=== PATIENT | female | born 1990 | race Caucasian/White ===

== ENCOUNTER → 2020-01-07 11:00 | Outpatient (BNVA) | payer MEDICAID, SELFPAY | PROVIDERS: Family Provider Family Medicine; PCP Registered Nurse; Visit Provider Registered Nurse | DX: F32.9 Major depressive disorder, single episode, unspecified (principal) | CPT/HCPCS: 80053; 84443; 85025 ==

== ENCOUNTER → 2020-07-07 09:43 | Outpatient (BNVA) | payer BC, MEDICAID, SELFPAY | PROVIDERS: Family Provider Family Medicine; PCP Registered Nurse; Visit Provider Registered Nurse | DX: E66.01 Morbid (severe) obesity due to excess calories (principal); F32.9 Major depressive disorder, single episode, unspecified; F41.9 Anxiety disorder, unspecified; Z68.43 Body mass index [BMI] 50.0-59.9, adult | CPT/HCPCS: 84432; 84439; 84443; 84480; 86800 ==

== ENCOUNTER 2020-07-29 10:46 | Outpatient (CLI) | payer BC, MEDICAID, SELFPAY ==
[2020-07-30 15:32] LABS: Thyroglobulin AB <1 IU/mL (< or = 1); Thyroid Peroxidase Antobodies 1 IU/mL (<9)
[2020-08-04 16:11] LABS: TSH Receptor Binding Antibody <1.00 IU/L (< OR = 2.00)
== END 2020-07-29 10:47 | disposition home or self-care (01) ==
PROVIDERS: PCP Registered Nurse; Visit Provider Internal Medicine
DX: E07.9 Disorder of thyroid, unspecified (principal); R53.83 Other fatigue
CPT/HCPCS: 83516; 86376; 86800; 99204

== ENCOUNTER 2020-09-10 12:00 | Outpatient (CLI) | payer BC, MEDICAID, SELFPAY | END 2020-09-10 12:01 | disposition home or self-care (01) | LOC: SLEEP 09-11 11:03 | PROVIDERS: PCP Registered Nurse; Visit Provider Internal Medicine | DX: R53.83 Other fatigue (principal) | CPT/HCPCS: G0399 ==

== ENCOUNTER → 2021-01-04 14:40 | Outpatient (BNVA) | payer BC, MEDICAID, SELFPAY | PROVIDERS: PCP Registered Nurse; Visit Provider Registered Nurse | DX: N39.0 Urinary tract infection, site not specified (principal) | CPT/HCPCS: 81000 ==

== ENCOUNTER 2021-03-31 11:21 | Emergency (ER) | payer BC, MEDICAID, SELFPAY ==
[2021-03-31 11:28] VITALS: BP 131/85; PULSE 76; RESP 16; TEMP 36.1; O2SAT 94; BMI 44.4
--- NOTE | 2021-03-31 11:42 | ECG_ITS ---
[facility] Test Date: 2021-03-31 Pat Name: Megan Garcia Department: Room: Gender: Female Instrument Tech: : 1990 Requested By: Evens Shelley Order Number: [id number] Vinson MD: Quita Antonio M.D. Measurements Intervals [place] Rate: 67 P: 30 DE: 129 QRS: 31 QRSD: 98 T: 30 QT: 393 QTc: 416 Interpretive Statements SINUS RHYTHM INTERPRETATION BASED ON A DEFAULT AGE OF 40 YEARS No previous ECG available for comparison Electronically Signed On 04-01-2021 1:24:34 CDT by Quita Antonio M.D. [id number]
--- NOTE | 2021-03-31 11:43 | ED_ITS ---
Documented by User: ROSA Garcia 03/31/21 14:00 HPI - Abdominal Pain General: Chief Complaint: Abdominal Pain Stated Complaint: ABD PAIN/SWELLING Time Seen by Provider: 03/31/21 11:22 History of Present Illness: HPI narrative: Patient is a 31-year-old female comes to the ED with abdominal pain. Patient has a past medical history of pancreatitis and approximately 3 months ago had bariatric gastric bypass surgery. Gastric sleeve surgery went well and for the past month she has not had any complications with eating or any vomiting. Patient says symptoms started last night after she ate some pork. She developed an achy pain that she currently rates a 7 out of 10 in the epigastric region of her abdomen. The pain radiates to the middle of her back. Eating something makes the pain worse. She denies any emesis, fever, chest pain, shortness of breath, UTI symptoms or any acute change in bowel movements. Patient did say that she just recently stopped taking Protonix about a week ago per her bariatric surgeons instructions. Associated Symptoms: Reports nausea; Denies chills, constipation, diarrhea, dysuria, fever(s), hematochezia, hematuria and vomiting Review of Systems Const: Denies: fever(s), chills or fatigue Eyes: Denies: change in vision or eye discomfort ENMT: Denies: throat pain, odynophagia, nasal discharge or nasal congestion Card: Denies: chest pain, palpitations, edema, swelling of feet/ankles, dyspnea on exertion or orthopnea Resp: Denies: dyspnea, productive cough or non-productive cough GI: Reports: abdominal pain and nausea; Denies: vomiting, diarrhea, constipation or hematochezia : Denies: flank pain, dysuria or hematuria Musc: Denies: neck pain, back pain or extremity swelling Skin/Breast: Denies: rash or new lesions Neuro: Denies: headache(s), numbness in extremities or weakness in extremities PFSH ED PFSH: Medical History Anxiety Chronic lumbosacral pain Depression RLS (restless legs syndrome) Surgical History History of gastric bypass Hx of section Hx of cholecystectomy Hx of tubal ligation Family History Other Psychiatric illness Thyroid disease Social History Alcohol intake: never Adopted: No Caregiver/support person: No Lives independently: No Household members: children Marital status: SINGLE History of recent travel: No Sexually active: Yes Current gender identity: Female Physical Exam Const: COMMON NORMALS: no acute distress, patient oriented x3, healthy appearing and alert GENERAL APPEARANCE: cooperative and comfortable NUTRITIONAL APPEARANCE: obese HENMT: COMMON NORMALS: normocephalic HEAD & SCALP: normocephalic MOUTH: Normal oral and palatal mucosa present THROAT: posterior oropharynx normal and uvula midline Neck/C-Spine: COMMON NORMALS: supple GENERAL: Yes normal visual inspection Resp: COMMON NORMALS: normal respiratory effort, No retractions, No use of accessory muscles and clear to auscultation bilaterally AUSCULTATION: clear to auscultation bilaterally Cardio: COMMON NORMALS: regular rate, regular rhythm, S1 normal heart sound present, S2 normal heart sound present, No gallops present (Cardio), No clicks present (Cardio), No murmurs present (Cardio) and Peripheral pulses 2+ throughout RATE: regular rate RHYTHM: regular rhythm HEART SOUNDS: S1 normal heart sound present and S2 normal heart sound present PERIPHERAL PULSES: Peripheral pulses 2+ throughout GI: COMMON NORMALS: Normal to inspection, nondistended, normoactive bowel sounds present, Soft to palpation and no masses INSPECTION: Yes central obesity PALPATION: Yes Soft to palpation and Yes Tenderness to palpation present (GI) (epigastric region) Details: other : COMMON NORMALS: Yes no CVA tenderness BLADDER/KIDNEY EXAM: Yes no CVA tenderness Back/Pelvis: COMMON NORMALS: no CVA tenderness Extremity: COMMON NORMALS: normal to inspection Neuro: COMMON NORMALS: patient oriented x3 SENSORIUM/ORIENTATION: Yes alert GAIT: Yes Normal gait present Skin: GENERAL SKIN EXAM: dry skin Course Vital Signs: Vital signs: Vital Signs Temperature 98.6 F 03/31/21 12:11 Pulse Rate 72 03/31/21 12:11 Respiratory Rate 16 03/31/21 12:42 Blood Pressure 144/92 03/31/21 12:11 Pulse Oximetry 98 03/31/21 12:42 MDM - Abdominal Pain MDM Narrative: Medical decision making narrative: Patient is a 31-year-old female comes to the ED with epigastric pain. Pain started last night after she ate some pork. She has a past medical history of pancreatitis and had bariatric gastric bypass surgery 3 months ago. She recently was taken off her Protonix med about a month ago per her bariatric surgeon's instructions. Patient appears nontoxic and in no acute distress or pain. She has some mild epigastric tenderness to palpation. Vitals stable. Labs were all unremarkable. CT of abdomen pelvis showed no acute findings. EKG showed normal sinus rhythm with no ST segment elevation or depression seen. Patient symptoms likely due to the recent removal of Protonix. Patient was told to contact her bariatric surgeon to discuss getting back on Protonix med. Patient's symptoms were controlled here in the ED with IV fluids, Zofran and morphine. Patient diagnosed with epigastric abdominal pain and discharged home with prescription for Zofran. Return to ED precautions given. Patient says she will contact her bariatric surgeon to discuss getting put back on acid reflux med. Patient understood and agreed with plan. Lab Data: Labs: Lab Results 03/31/21 03/31/21 03/31/21 11:50 11:50 11:50 WBC 7.6 10^3/uL 10^3/ uL (4.0-10.0) RBC 4.42 10^6/uL 10^6 /uL (4.1-5.3) Hgb 12.9 g/dL g/dL (11.5-15.3) Hct 39.9 % % (37.0-47.0) MCV 90.3 fl fl (81-99) MCH 29.2 pg pg (28.0-34.0) MCHC 32.3 g/dL g/dL (30.0-36.0) RDW 13.7 % % (12.1-15.1) Plt Count 235 10^3/cmm 10^3 /cmm (130-400) MPV 11.1 fL H fL (7.4-10.4) Neut % (Auto) 59.1 % % Lymph % (Auto) 31.5 % % [place] % (Auto) 7.1 % % Eos % (Auto) 1.5 % % Baso % (Auto) 0.5 % % Neut # (Auto) 4.47 10^3/uL 10^3 /uL (1.8-7.7) Lymph # (Auto) 2.4 10^3/uL 10^3/ uL (0.8-4.8) [place] # (Auto) 0.5 10^3/uL 10^3/ uL (0.2-0.9) Eos # (Auto) 0.1 10^3/uL 10^3/ uL (0.0-0.8) Baso # (Auto) 0.0 10^3/uL 10^3/ uL (0.0-0.1) Nucleated RBC % (a uto) 0 % % Nucleated RBCs # 0.0 /100WBC /100W BC Sodium 136 mmol/L mmol/L (136-145) Potassium 4.0 mmol/L mmol/L (3.5-5.1) Chloride 101 mmol/L mmol/L (98-107) Carbon Dioxide 27 mmol/L mmol/L (22-29) Anion Gap 12.0 (5-19) BUN 7 mg/dL mg/dL (6-20) Creatinine 0.6 mg/dL mg/dL (0.5-0.9) GFR Calculation 115.1 mL/min mL/m in (90-130) Glucose 85 mg/dL mg/dL (65-115) Calculated Osmolal ity 279 mOsm/kg L mOs m/kg (285-295) Calcium 9.3 mg/dL mg/dL (8.5-10.5) Total Bilirubin 0.2 mg/dL mg/dL (0.15-1.2) AST 27 U/L U/L (0-32) ALT 31 U/L U/L (0-33) Alkaline Phosphata se 110 IU/L H IU/L (35-105) Total Protein 7.0 g/dL g/dL (6.6-8.7) Albumin 4.1 g/dL g/dL (3.5-5.2) Globulin 2.9 g/dL g/dL (1.3-4.6) Lipase 19 U/L U/L (13-60) HCG, Qual Negative (Negative) Urine Color Urine Appearance Urine pH Ur Specific Gravit y Urine Protein Urine Glucose (UA) Urine Ketones Urine Blood Urine Nitrate Urine Bilirubin Urine Urobilinogen Ur Leukocyte Indu ase Urine RBC Urine WBC Ur Squamous Epith Cells Amorphous Sediment Urine Bacteria Urine Mucus 10/27/21 12:15 WBC RBC Hgb Hct MCV MCH MCHC RDW Plt Count MPV Neut % (Auto) Lymph % (Auto) [place] % (Auto) Eos % (Auto) Baso % (Auto) Neut # (Auto) Lymph # (Auto) [place] # (Auto) Eos # (Auto) Baso # (Auto) Nucleated RBC % (a uto) Nucleated RBCs # Sodium Potassium Chloride Carbon Dioxide Anion Gap BUN Creatinine GFR Calculation Glucose Calculated Osmolal ity Calcium Total Bilirubin AST ALT Alkaline Phosphata se Total Protein Albumin Globulin Lipase HCG, Qual Urine Color Yellow (Yellow) Urine Appearance Hazy A (CLEAR) Urine pH 5 (5-7) Ur Specific Gravit y 1.015 (1.005-1.030) Urine Protein Neg (Negative) Urine Glucose (UA) Norm (Normal) Urine Ketones 1+ H (Negative) Urine Blood Neg (Negative) Urine Nitrate Negative (Negative) Urine Bilirubin 1+ H (Negative) Urine Urobilinogen 1 mg/dL H mg/dL (Negative) Ur Leukocyte Indu ase 1+ H (Negative) Urine RBC Not Reportable Urine WBC 10-15 /hpf H /hpf (0-5) Ur Squamous Epith Cells 15-25 /hpf H /hpf (0-5) Amorphous Sediment Not Reportable Urine Bacteria 1+ /hpf H /hpf (NONE) Urine Mucus 3+ /hpf /hpf Imaging Data ^: CT Abd/Pel: Attestation: I personally reviewed and interpreted this imaging study as follows: Radiologist's impression: [address] [address] [address] Scan Report Signed Patient: Megan Garcia Unit #: [id number] : 1990 Age/Sex: 31 / F ADM Date: 03/31/21 Loc: ER Room/Bed: Attending Dr: Ordering Provider/Ordering MD: Evens Shelley Date of Service: 03/31/21 Procedure(s): CT abdomen pelvis w con* [id number] Accession Number(s): [id number] Report Number: [id number] WS: [id number] CT ABDOMEN AND PELVIS WITH CONTRAST HISTORY: epigastric pain, nausea TECHNIQUE: Imaging performed of the abdomen and pelvis with IV contrast. Single phase imaging of the abdomen. Coronal and sagittal reformats are submitted. All CT scans at [facility] use at least one of these dose optimization techniques: automated exposure control; mA and/or kV adjustment per patient size (includes targeted exams where dose is matched to clinical indication); or iterative reconstruction. IV CONTRAST: Omnipaque 300; 95 mL IV. Oral contrast: No DLP: 1822.12 mGy.cm COMPARISON: None available. Lower thorax: Lung bases are clear. Heart is normal size. No hiatal hernia. Liver/biliary system: Hepatic steatosis along the falciform ligament. No bile duct dilatation or mass. Gallbladder: Status post cholecystectomy. Pancreas: Normal size pancreas and pancreatic duct. No adjacent inflammation. Spleen: Normal size spleen. No mass or infarct. Adrenal glands: Normal. Right kidney: Normal. Left kidney: Normal. Aorta: Normal. Lymphadenopathy: None. Free fluid: Tiny amount of free fluid in the RIGHT pelvis. GI tract: The appendix is normal. No GI tract obstruction. Prior gastric bypass surgery. Abdominal wall: Fat-containing umbilical hernia. Pelvis: Slightly retroflexed uterus. Small amount of free fluid in the RIGHT adnexa. Small follicles within the RIGHT ovary. Bones: Unremarkable. CT/CT abdomen pelvis w con* [id number] IMPRESSION: 1. No acute abdominal or pelvic abnormalities are identified. 2. Normal appendix. 3. No renal obstruction or calcifications. 4. Very small amount of free fluid in the RIGHT pelvis is physiologic. May be from a recently ruptured ovarian cyst. 5. Prior cholecystectomy and gastric bypass. Dictated By: Sonam Black DO Signed By: Sonam Black DO Signed Date/Time: 03/31/21 1323 DD/ 1319 EKG Data ^: EKG 1: Attestation: I personally reviewed and interpreted this EKG as follows: EKG interpretation date: 03/31/21 Interpretation: Normal sinus rhythm. 67 bpm, no ST segment elevation or depression seen. Discharge Plan Discharge Patient Disposition: Home Clinical Impression: Epigastric abdominal pain Condition: Stable Prescriptions: New ondansetron 4 mg tablet,disintegrating 4 mg PO Q8H PRN (Reason: nausea and vomiting) Qty: 20 RF: 0 No Action (DME) CPAP See Rx Instructions .Route .MEDSUPPLY Qty: 1 RF: 0 amoxicillin 500 mg tablet 500 mg PO BID 10 Days Qty: 20 RF: 0 multivitamin Tablet 1 tab PO DAILY RF: 0 Tylenol Ex Str Rapid Release 500 mg Tablet 1,000 mg PO Q4H PRN (Reason: Pain) RF: 0 Calcium Chew 500-100-40 mg-unit-mcg Tablet,Chewable 1 tab PO BID RF: 0 buspirone 10 mg tablet 5 mg PO BID RF: 0 spironolactone 50 mg tablet 50 mg PO QAM RF: 0 escitalopram oxalate 20 mg tablet 20 mg PO BEDTIME RF: 0 Discharge Orders: Discharge ED (Routine); Ordered 03/31/21 Ordered By: Evens Shelley Referrals: Deepak Aguirre FNP [Primary Care Provider] - Discharge Diet: Advance as tolerated Discharge Activity: Resume usual activity Patient Instructions: Abdominal Pain (ED), Epigastric Pain (ED) Activity Restrictions/Additional Instructions: Follow-up with medical provider as directed. Contact your gastric bypass surgeon to discuss getting back on your acid reflux medication Protonix. Continue taking all home medications as previously prescribed. Return to the ER or your medical provider if condition worsens. Please read and understand discharge instructions. Thank you for choosing [facility] for your healthcare needs today. Please realize this is an emergency room and that we are providing you with a medical screening exam and this may not be complete and all inclusive of all the testing and or work up that you may need to determine your ailment or severity of your illness. It is very important that you follow up as instructed or that you return to the Emergency Department should you have concerns or if your condition changes or worsens in any way. Coding Level of Care Code ED Pack Train Driver for Chg Fwd Exam Comprehensive Documented by User: Jennifer Castillo MD 04/01/21 23:00 HPI - Abdominal Pain General: Chief Complaint: Abdominal Pain Stated Complaint: ABD PAIN/SWELLING Time Seen by Provider: 03/31/21 11:22 [facility] ED PFSH: Medical History Anxiety Chronic lumbosacral pain Depression RLS (restless legs syndrome) Surgical History History of gastric bypass Hx of section Hx of cholecystectomy Hx of tubal ligation Family History Other Psychiatric illness Thyroid disease Social History Alcohol intake: never Adopted: No Caregiver/support person: No Lives independently: No Household members: children Marital status: SINGLE History of recent travel: No Sexually active: Yes Current gender identity: Female Course Vital Signs: Vital signs: Vital Signs Temperature 98.6 F 03/31/21 12:11 Pulse Rate 72 03/31/21 12:11 Respiratory Rate 16 03/31/21 12:42 Blood Pressure 144/92 03/31/21 12:11 Pulse Oximetry 98 03/31/21 12:42 MDM - Abdominal Pain Lab Data: Labs: Lab Results 03/31/21 03/31/21 03/31/21 11:50 11:50 11:50 WBC 7.6 10^3/uL 10^3/ uL (4.0-10.0) RBC 4.42 10^6/uL 10^6 /uL (4.1-5.3) Hgb 12.9 g/dL g/dL (11.5-15.3) Hct 39.9 % % (37.0-47.0) MCV 90.3 fl fl (81-99) MCH 29.2 pg pg (28.0-34.0) MCHC 32.3 g/dL g/dL (30.0-36.0) RDW 13.7 % % (12.1-15.1) Plt Count 235 10^3/cmm 10^3 /cmm (130-400) MPV 11.1 fL H fL (7.4-10.4) Neut % (Auto) 59.1 % % Lymph % (Auto) 31.5 % % [place] % (Auto) 7.1 % % Eos % (Auto) 1.5 % % Baso % (Auto) 0.5 % % Neut # (Auto) 4.47 10^3/uL 10^3 /uL (1.8-7.7) Lymph # (Auto) 2.4 10^3/uL 10^3/ uL (0.8-4.8) [place] # (Auto) 0.5 10^3/uL 10^3/ uL (0.2-0.9) Eos # (Auto) 0.1 10^3/uL 10^3/ uL (0.0-0.8) Baso # (Auto) 0.0 10^3/uL 10^3/ uL (0.0-0.1) Nucleated RBC % (a uto) 0 % % Nucleated RBCs # 0.0 /100WBC /100W BC Sodium 136 mmol/L mmol/L (136-145) Potassium 4.0 mmol/L mmol/L (3.5-5.1) Chloride 101 mmol/L mmol/L (98-107) Carbon Dioxide 27 mmol/L mmol/L (22-29) Anion Gap 12.0 (5-19) BUN 7 mg/dL mg/dL (6-20) Creatinine 0.6 mg/dL mg/dL (0.5-0.9) GFR Calculation 115.1 mL/min mL/m in (90-130) Glucose 85 mg/dL mg/dL (65-115) Calculated Osmolal ity 279 mOsm/kg L mOs m/kg (285-295) Calcium 9.3 mg/dL mg/dL (8.5-10.5) Total Bilirubin 0.2 mg/dL mg/dL (0.15-1.2) AST 27 U/L U/L (0-32) ALT 31 U/L U/L (0-33) Alkaline Phosphata se 110 IU/L H IU/L (35-105) Total Protein 7.0 g/dL g/dL (6.6-8.7) Albumin 4.1 g/dL g/dL (3.5-5.2) Globulin 2.9 g/dL g/dL (1.3-4.6) Lipase 19 U/L U/L (13-60) HCG, Qual Negative (Negative) Urine Color Urine Appearance Urine pH Ur Specific Gravit y Urine Protein Urine Glucose (UA) Urine Ketones Urine Blood Urine Nitrate Urine Bilirubin Urine Urobilinogen Ur Leukocyte Indu ase Urine RBC Urine WBC Ur Squamous Epith Cells Amorphous Sediment Urine Bacteria Urine Mucus 03/31/21 12:15 WBC RBC Hgb Hct MCV MCH MCHC RDW Plt Count MPV Neut % (Auto) Lymph % (Auto) [place] % (Auto) Eos % (Auto) Baso % (Auto) Neut # (Auto) Lymph # (Auto) [place] # (Auto) Eos # (Auto) Baso # (Auto) Nucleated RBC % (a uto) Nucleated RBCs # Sodium Potassium Chloride Carbon Dioxide Anion Gap BUN Creatinine GFR Calculation Glucose Calculated Osmolal ity Calcium Total Bilirubin AST ALT Alkaline Phosphata se Total Protein Albumin Globulin Lipase HCG, Qual Urine Color Yellow (Yellow) Urine Appearance Hazy A (CLEAR) Urine pH 5 (5-7) Ur Specific Gravit y 1.015 (1.005-1.030) Urine Protein Neg (Negative) Urine Glucose (UA) Norm (Normal) Urine Ketones 1+ H (Negative) Urine Blood Neg (Negative) Urine Nitrate Negative (Negative) Urine Bilirubin 1+ H (Negative) Urine Urobilinogen 1 mg/dL H mg/dL (Negative) Ur Leukocyte Indu ase 1+ H (Negative) Urine RBC Not Reportable Urine WBC 10-15 /hpf H /hpf (0-5) Ur Squamous Epith Cells 15-25 /hpf H /hpf (0-5) Amorphous Sediment Not Reportable Urine Bacteria 1+ /hpf H /hpf (NONE) Urine Mucus 3+ /hpf /hpf Discharge Plan Discharge Patient Disposition: Home Clinical Impression: Epigastric abdominal pain Condition: Stable Prescriptions: New ondansetron 4 mg tablet,disintegrating 4 mg PO Q8H PRN (Reason: nausea and vomiting) Qty: 20 RF: 0 No Action (DME) CPAP See Rx Instructions .Route .MEDSUPPLY Qty: 1 RF: 0 amoxicillin 500 mg tablet 500 mg PO BID 10 Days Qty: 20 RF: 0 multivitamin Tablet 1 tab PO DAILY RF: 0 Tylenol Ex Str Rapid Release 500 mg Tablet 1,000 mg PO Q4H PRN (Reason: Pain) RF: 0 Calcium Chew 500-100-40 mg-unit-mcg Tablet,Chewable 1 tab PO BID RF: 0 buspirone 10 mg tablet 5 mg PO BID RF: 0 spironolactone 50 mg tablet 50 mg PO QAM RF: 0 escitalopram oxalate 20 mg tablet 20 mg PO BEDTIME RF: 0 Discharge Orders: Discharge ED (Routine); Ordered 03/31/21 Ordered By: Evens Shelley Referrals: Deepak Aguirre, PRINCIPAL ARCHAEOLOGIST [Primary Care Provider] - Discharge Diet: Advance as tolerated Discharge Activity: Resume usual activity Patient Instructions: Abdominal Pain (ED), Epigastric Pain (ED) Activity Restrictions/Additional Instructions: Follow-up with medical provider as directed. Contact your gastric bypass surgeon to discuss getting back on your acid reflux medication Protonix. Continue taking all home medications as previously prescribed. Return to the ER or your medical provider if condition worsens. Please read and understand discharge instructions. Thank you for choosing [facility] for your healthcare needs today. Please realize this is an emergency room and that we are providing you with a medical screening exam and this may not be complete and all inclusive of all the testing and or work up that you may need to determine your ailment or severity of your illness. It is very important that you follow up as instructed or that you return to the Emergency Department should you have concerns or if your condition changes or worsens in any way. Coding Level of Care Code ED Pack Train Driver for Chg Fwd Exam Comprehensive
[2021-03-31 12:07] LABS: Basophils % 0.5 %; Eosinophils # 0.1 10^3/uL (0.0-0.8); Eosinophils % 1.5 %; Hematocrit 39.9 % (37.0-47.0); Hemoglobin 12.9 g/dL (11.5-15.3); Lymphocytes # 2.4 10^3/uL (0.8-4.8); Lymphocytes % 31.5 %; Mean Corpuscular HGB Conc 32.3 g/dL (30.0-36.0); Mean Corpuscular Hemoglobin 29.2 pg (28.0-34.0); Mean Corpuscular Volume 90.3 fl (81-99); Mean Platelet Volume 11.1 fL (7.4-10.4); Monocytes # 0.5 10^3/uL (0.2-0.9); Monocytes % 7.1 %; Neutrophils # 4.47 10^3/uL (1.8-7.7); Neutrophils % 59.1 %; Nucleated Red Blood Cells % 0 %; Platelet Count 235 10^3/cmm (130-400); Red Blood Count 4.42 10^6/uL (4.1-5.3); Red Cell Distribution Width 13.7 % (12.1-15.1); White Blood Count 7.6 10^3/uL (4.0-10.0)
[2021-03-31 12:11] VITALS: BP 144/92; PULSE 72; RESP 16; TEMP 37; O2SAT 96
--- NOTE | 2021-03-31 12:22 | CT_ITS ---
WS: [id number] CT ABDOMEN AND PELVIS WITH CONTRAST HISTORY: epigastric pain, nausea TECHNIQUE: Imaging performed of the abdomen and pelvis with IV contrast. Single phase imaging of the abdomen. Coronal and sagittal reformats are submitted. All CT scans at [facility] use at [address] one of these dose optimization techniques: automated exposure control; mA and/or kV adjustment per patient size (includes targeted exams where dose is matched to clinical indication); or iterative re construction. IV CONTRAST: Omnipaque 300; 95 mL IV. Oral contrast: No DLP: 1822.12 mGy.cm COMPARISON: None available. Lower thorax: Lung bases are clear. Heart is normal size. No hiatal hernia. Liver/biliary system: Hepatic steatosis along the falciform ligament. No bile duct dilatation or mass . Gallbladder: Status post cholecystectomy. Pancreas: Normal size pancreas and pancreatic duct. No adjacent inflammation. Spleen: Normal size spleen. No mass or infarct. Adrenal glands: Normal. Right kidney: Normal. Left kidney: Normal. Aorta: Normal. Lymphadenopathy: None. Free fluid: Tiny amount of free fluid in the RIGHT pelvis. GI tract: The appendix is normal. No GI tract obstruction. Prior gastric bypass surgery. Abdominal wall: Fat-containing umbilical hernia. Pelvis: Slightly retroflexed uterus. Small amount of free fluid in the RIGHT adnexa. Small follicles within the RIGHT ovary. Bones: Unremarkable. CT/CT abdomen pelvis w con* [id number] IMPRESSION: 1. No acute abdominal or pelvic abnormalities are identified. 2. Normal appendix. 3. No renal obstruction or calcifications. 4. Very small amount of free fluid in the RIGHT pelvis is physiologic. May be from a recently ruptured ovarian cyst. 5. Prior cholecystectomy and gastric bypass.
[2021-03-31 12:29] LABS: Alanine Aminotransferase 31 U/L (0-33); Albumin Level 4.1 g/dL (3.5-5.2); Alkaline Phosphatase 110 IU/L (35-105); Aspartate Amino Transferase 27 U/L (0-32); Blood Urea Nitrogen 7 mg/dL (6-20); Calcium 9.3 mg/dL (8.5-10.5); Carbon Dioxide 27 mmol/L (22-29); Chloride 101 mmol/L (98-107); Globulin 2.9 g/dL (1.3-4.6); Glomerular Filtration Rate 115.1 mL/min (90-130); Glucose 85 mg/dL (65-115); Lipase 19 U/L (13-60); Osmolality Calculated 279 mOsm/kg (285-295); Sodium 136 mmol/L (136-145); Total Bilirubin 0.2 mg/dL (0.15-1.2)
[2021-03-31 12:31] LABS: Charge for UA Resulting for Rev
[2021-03-31 12:42] VITALS: RESP 16; O2SAT 98
[2021-03-31] MEDS: ondansetron 2 mg/ML SDV 2 mL 4 MG IVP (12:42)
[2021-03-31] MEDS: morphine 4 mg/mL SDV 1 mL IVP (12:42)
[2021-03-31] MEDS: sodium chloride 0.9% 500 ML 999 ML IV (12:44)
[2021-03-31 12:53] LABS: HCG, Serum Qual Negative (Negative)
[2021-03-31 12:59] LABS: Add Urine Microscopic? YES; Bilirubin Urine 1+ (Negative); Blood Urine Neg (Negative); Glucose Urine UA Norm (Normal); Ketones Urine 1+ (Negative); Leukocyte Esterase Urine 1+ (Negative); Nitrate Urine Negative (Negative); Protein Urine Neg (Negative); Specific Gravity, Urine 1.015 (1.005-1.030); Urine Appearance Hazy (CLEAR); Urine Color Yellow (Yellow); Urobilinogen Urine 1 mg/dL (Negative); pH Urine 5 (5-7)
[2021-03-31 13:00] LABS: Bacteria Urine 1+ /hpf; Mucus Urine 3+ /hpf; Squamous Epithelial Cell Urine 15-25 /hpf (0-5)
[2021-03-31 13:01] LABS: Add Urine Culture? No
[2021-03-31] MEDS: iohexol 300 mg/mL 100 mL Btl IV (13:03)
== END 2021-03-31 14:56 | disposition home or self-care (01) ==
PROVIDERS: Emergency Provider Physician Assistant; PCP Registered Nurse
DX: R10.13 Epigastric pain (principal)
CPT/HCPCS: 74177; 80053; 81001; 81003; 83690; 84703; 85025; 93005; 96374; 96375; 99283; 99291; J2270; J2405; J7040; Q9967

== ENCOUNTER 2021-08-15 09:23 | Emergency (ER) | payer BC, MEDICAID, SELFPAY ==
[2021-08-15 09:33] VITALS: BP 97/66; PULSE 121; RESP 20; TEMP 39; O2SAT 96; BMI 38.7
--- NOTE | 2021-08-15 09:41 | XRR_ITS ---
PROCEDURE INFORMATION: Exam: XR Chest Exam date and time: 08/15/2021 9:41 AM Age: 31 years old Clinical indication: Fever TECHNIQUE: Imaging protocol: XR of the chest. Views: 1 view. COMPARISON: CT abdomen pelvis w con* [id number] 03/31/2021 1:01 PM FINDINGS: Lungs: Unremarkable. No consolidation. Pleural spaces: Unremarkable. No pleural effusion. No pneumothorax. Heart/Mediastinum: Unremarkable. No cardiomegaly. Bones/joints: Unremarkable. XR/XR chest 1V portable [id number] IMPRESSION: Negative chest examination
--- NOTE | 2021-08-15 09:49 | W.ED.FEVER ---
HPI - Fever General: Chief Complaint: Fever Stated Complaint: chest/throat burn; cough; fever Time Seen by Provider: 08/15/21 09:33 Source: patient Mode of arrival: ambulatory Limitations: no limitations History of Present Illness: 31-year-old female states that over the last day she has been having fever body aches chills and a burning cough. States that she took a Tylenol day and she is continue to have a fever. She denies any worsening improving factors states she also has felt dehydrated she has had little decreased appetite. 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 Associated symptoms: Reports chills; Deny abdominal pain, chest pain, diarrhea, dysuria, headache(s), nausea or vomiting Review of Systems Const: Reports: fever(s), chills and body aches; Denies: change in appetite Eyes: Denies: blurry vision or eye discomfort ENMT: Denies: throat pain or dental pain Card: Denies: chest pain Resp: Reports: non-productive cough; Denies: dyspnea GI: Denies: abdominal pain, nausea, vomiting or diarrhea : Denies: dysuria Musc: Denies: neck pain or back pain Skin/Breast: Denies: rash Neuro: Denies: headache(s) Psych: Denies: depression Spencer/Lymph: Denies: easy bruising All/Imm: Denies: urticaria PFSH ED PFSH: Medical History Anxiety Chronic lumbosacral pain Depression RLS (restless legs syndrome) Surgical History History of gastric bypass Hx of section Hx of cholecystectomy Hx of tubal ligation Family History Other Psychiatric illness Thyroid disease Social History Alcohol intake: never Adopted: No Caregiver/support person: No Lives independently: No Household members: children Marital status: SINGLE History of recent travel: No Sexually active: Yes Current gender identity: Female Physical Exam Const: COMMON NORMALS: no acute distress, patient oriented x3 and healthy appearing HENMT: COMMON NORMALS: normocephalic and atraumatic HEAD & SCALP: normocephalic and atraumatic Eye: COMMON NORMALS: Equal, round and reactive pupils present and EOMs intact bilaterally PUPIL: Yes Equal, round and reactive pupils present Neck/C-Spine: COMMON NORMALS: full ROM and supple Chest: COMMONS NORMALS: normal inspection of the chest and normal palpation of entire chest wall Resp: COMMON NORMALS: normal respiratory effort, No retractions, No use of accessory muscles and clear to auscultation bilaterally AUSCULTATION: clear to auscultation bilaterally Cardio: COMMON NORMALS: regular rhythm and No murmurs present (Cardio) RATE: tachycardic RHYTHM: regular rhythm GI: COMMON NORMALS: Normal to inspection, nondistended, normoactive bowel sounds present, Soft to palpation, non-tender and no masses PALPATION: Yes Soft to palpation Extremity: COMMON NORMALS: normal to inspection and full ROM Neuro: COMMON NORMALS: patient oriented x3, moves all extremities and no focal motor deficits Psych: COMMON NORMALS: mental status grossly normal, Normal thought process present and cooperative THOUGHT PROCESS: Normal thought process present Skin: COMMON NORMALS: no rashes or lesions noted and no wounds GENERAL SKIN EXAM: no rashes or lesions noted Course Vital Signs: Vital signs: Vital Signs Temperature 101.0 F H 08/15/21 10:20 Pulse Rate 115 H 08/15/21 10:20 Respiratory Rate 20 H 08/15/21 09:33 Blood Pressure 116/66 08/15/21 10:20 Pulse Oximetry 95 08/15/21 10:20 MDM - Fever Medical Decision Making Patient presents here with fever body aches is positive for influenza A she is well-appearing here temperature is improved she feels improved after IV fluids she is stable for discharge is to follow-up PCP and return if worsening she understands agrees to plan. Lab Data : 08/15/21 09:56 08/15/21 09:56 Laboratory Results WBC 3.6 10^3/uL (4.0-10.0) L 08/15/21 09:56 RBC 4.80 10^6/uL (4.1-5.3) 08/15/21 09:56 Hgb 14.3 g/dL (11.5-15.3) 08/15/21 09:56 Hct 42.7 % (37.0-47.0) 08/15/21 09:56 MCV 89.0 fl (81-99) 08/15/21 09:56 MCH 29.8 pg (28.0-34.0) 08/15/21 09:56 MCHC 33.5 g/dL (30.0-36.0) 08/15/21 09:56 RDW 12.9 % (12.1-15.1) 08/15/21 09:56 Plt Count 179 10^3/cmm (130-400) 08/15/21 09:56 MPV 11.3 fL (7.4-10.4) H 08/15/21 09:56 Neut % (Auto) 71.5 % 08/15/21 09:56 Lymph % (Auto) 12.4 % 08/15/21 09:56 [place] % (Auto) 14.9 % 08/15/21 09:56 Eos % (Auto) 0.3 % 08/15/21 09:56 Baso % (Auto) 0.6 % 08/15/21 09:56 Neut # (Auto) 2.59 10^3/uL (1.8-7.7) 08/15/21 09:56 Lymph # (Auto) 0.5 10^3/uL (0.8-4.8) L 08/15/21 09:56 [place] # (Auto) 0.5 10^3/uL (0.2-0.9) 08/15/21 09:56 Eos # (Auto) 0.0 10^3/uL (0.0-0.8) 08/15/21 09:56 Baso # (Auto) 0.0 10^3/uL (0.0-0.1) 08/15/21 09:56 Nucleated RBC % (auto) 0 % 08/15/21 09:56 Nucleated RBCs # 0.0 /100WBC 08/15/21 09:56 Sodium 134 mmol/L (136-145) L 08/15/21 09:56 Potassium 3.7 mmol/L (3.5-5.1) 08/15/21 09:56 Chloride 100 mmol/L (98-107) 08/15/21 09:56 Carbon Dioxide 23 mmol/L (22-29) 08/15/21 09:56 Anion Gap 14.7 (5-19) 08/15/21 09:56 BUN 5 mg/dL (6-20) L 08/15/21 09:56 Creatinine 0.9 mg/dL (0.5-0.9) 08/15/21 09:56 GFR Calculation 72.1 mL/min (90-130) L 08/15/21 09:56 Glucose 94 mg/dL (65-115) 08/15/21 09:56 Calculated Osmolality 275 mOsm/kg (285-295) L 08/15/21 09:56 Lactate 0.9 mmol/L (0.5-2.2) 08/15/21 09:56 Calcium 8.5 mg/dL (8.5-10.5) 08/15/21 09:56 Total Bilirubin 0.2 mg/dL (0.15-1.2) 08/15/21 09:56 AST 43 U/L (0-32) H 08/15/21 09:56 ALT 49 U/L (0-33) H 08/15/21 09:56 Alkaline Phosphatase 132 IU/L (35-105) H 08/15/21 09:56 Total Protein 7.4 g/dL (6.6-8.7) 08/15/21 09:56 Albumin 4.4 g/dL (3.5-5.2) 08/15/21 09:56 Globulin 3.0 g/dL (1.3-4.6) 08/15/21 09:56 Influenza Type A Ag Positive (Negative) H 08/15/21 10:08 Influenza Type B Ag Negative (Negative) 08/15/21 10:08 Discharge Plan Discharge Patient Disposition: Home Clinical Impression: Influenza Condition: Stable Prescriptions: New Tamiflu 75 mg capsule 75 mg PO BID 5 Days Qty: 10 0RF No Action (DME) CPAP See Rx Instructions .Route .MEDSUPPLY Qty: 1 0RF Rx Instructions: Auto Titrate CPACP 6-16cm Sleep study done at [facility] escitalopram oxalate 20 mg tablet 20 mg PO BEDTIME 90 Days Qty: 90 3RF buspirone 10 mg tablet 5 mg PO BID Qty: 30 3RF multivitamin Tablet 1 tab PO DAILY 0RF Tylenol Ex Str Rapid Release 500 mg Tablet 1,000 mg PO Q4H PRN (Reason: Pain) 0RF Calcium Chew 500-100-40 mg-unit-mcg Tablet,Chewable 1 tab PO BID 0RF spironolactone 50 mg tablet 50 mg PO QAM 0RF ondansetron 4 mg tablet,disintegrating 4 mg PO Q8H PRN (Reason: nausea and vomiting) Qty: 20 0RF Discharge Orders: Discharge ED (Routine); Ordered 08/15/21 Ordered By: Fernando Yousif Referrals: Deepak Aguirre FNP [Primary Care Provider] - 1-3 days Discharge Diet: Advance as tolerated Discharge Activity: Resume usual activity Patient Instructions: Influenza (ED) Coding Level of Care Code ED Filler Shaker for Mariog Fwd Exam Comprehensive
[2021-08-15] MEDS: sodium chloride 0.9% 1,000 ML 999 ML IV (09:52)
[2021-08-15] MEDS: acetaminophen 325 mg Tablet 650 MG PO (09:53)
[2021-08-15 10:05] LABS: Basophils % 0.6 %; Eosinophils % 0.3 %; Hematocrit 42.7 % (37.0-47.0); Hemoglobin 14.3 g/dL (11.5-15.3); Lymphocytes # 0.5 10^3/uL (0.8-4.8); Lymphocytes % 12.4 %; Mean Corpuscular HGB Conc 33.5 g/dL (30.0-36.0); Mean Corpuscular Hemoglobin 29.8 pg (28.0-34.0); Mean Platelet Volume 11.3 fL (7.4-10.4); Monocytes # 0.5 10^3/uL (0.2-0.9); Monocytes % 14.9 %; Neutrophils # 2.59 10^3/uL (1.8-7.7); Neutrophils % 71.5 %; Nucleated Red Blood Cells % 0 %; Platelet Count 179 10^3/cmm (130-400); Red Cell Distribution Width 12.9 % (12.1-15.1); White Blood Count 3.6 10^3/uL (4.0-10.0)
[2021-08-15 10:20] VITALS: BP 116/66; PULSE 115; TEMP 38.3; O2SAT 95
[2021-08-15 10:22] LABS: Lactate (Lactic Acid level) 0.9 mmol/L (0.5-2.2)
[2021-08-15 10:23] LABS: Alanine Aminotransferase 49 U/L (0-33); Albumin Level 4.4 g/dL (3.5-5.2); Alkaline Phosphatase 132 IU/L (35-105); Anion Gap 14.7 (5-19); Aspartate Amino Transferase 43 U/L (0-32); Blood Urea Nitrogen 5 mg/dL (6-20); Calcium 8.5 mg/dL (8.5-10.5); Carbon Dioxide 23 mmol/L (22-29); Chloride 100 mmol/L (98-107); Glomerular Filtration Rate 72.1 mL/min (90-130); Glucose 94 mg/dL (65-115); Osmolality Calculated 275 mOsm/kg (285-295); Potassium 3.7 mmol/L (3.5-5.1); Sodium 134 mmol/L (136-145); Total Bilirubin 0.2 mg/dL (0.15-1.2); Total Protein 7.4 g/dL (6.6-8.7)
[2021-08-15 10:37] LABS: Influenza A by IFA Positive (Negative); Influenza B by IFA Negative (Negative)
[2021-08-15 10:43] VITALS: BP 113/64; PULSE 105; TEMP 37.8; O2SAT 97
[2021-08-15 11:58] LABS: Adenovirus Not Detected (NOT DETECT); Chlamydia Pneumoniae Not Detected (NOT DETECT); Coronavirus 229E,HKU1,NL63,OC4 Not Detected (NOT DETECT); Human Metapneumovirus Not Detected (NOT DETECT); Human Rhinovirus/Enterovirus Not Detected (NOT DETECT); Influenza A Detected (NOT DETECT); Influenza A H1 Not Detected (NOT DETECT); Influenza A H1-2009 Not Detected (NOT DETECT); Influenza A H3 Detected (NOT DETECT); Influenza B Not Detected (NOT DETECT); Mycoplasma Pneumoniae Not Detected (NOT DETECT); Parainfluenza Virus Type 1 Not Detected (NOT DETECT); Parainfluenza Virus Type 2 Not Detected (NOT DETECT); Parainfluenza Virus Type 3 Not Detected (NOT DETECT); Parainfluenza Virus Type 4 Not Detected (NOT DETECT); Respiratory Syncytial Virus A Not Detected (NOT DETECT); Respiratory Syncytial Virus B Not Detected (NOT DETECT); SARS-COV-2 Not Detected (NOT DETECT)
== END 2021-08-15 11:01 | disposition home or self-care (01) ==
PROVIDERS: Physician Assistant; Emergency Provider Emergency Medicine; PCP Registered Nurse
DX: J11.1 Influenza due to unidentified influenza virus with other respiratory manifestations (principal); Z20.822 Contact with and (suspected) exposure to COVID-19
CPT/HCPCS: 36415; 71045; 80053; 83605; 85025; 87040; 87635; 87804; 96360; 99283; J7030

== ENCOUNTER → 2022-10-11 10:18 | Outpatient (BNVA) | payer BC, MEDICAID, SELFPAY | PROVIDERS: PCP Registered Nurse; Visit Provider Registered Nurse | DX: E07.9 Disorder of thyroid, unspecified (principal); E66.01 Morbid (severe) obesity due to excess calories; R73.9 Hyperglycemia, unspecified; Z68.43 Body mass index [BMI] 50.0-59.9, adult | CPT/HCPCS: 80053; 80061; 82306; 82607; 83036; 84443; 85025 ==

== ENCOUNTER 2023-03-17 07:52 | Emergency (ER) | payer BC, MEDICAID, SELFPAY ==
[2023-03-17 08:03] VITALS: BP 107/72; PULSE 101; RESP 18; TEMP 36.8; O2SAT 95; BMI 37.0
[2023-03-17 08:07] VITALS: BP 106/78; PULSE 101; RESP 16; O2SAT 95
--- NOTE | 2023-03-17 08:18 | ED_ITS ---
HPI - Abdominal Pain General: Chief Complaint: Abdominal Pain Stated Complaint: lower abd pain Time Seen by Provider: 03/17/23 08:06 Source: patient Mode of arrival: ambulatory History of Present Illness: 33-year-old female presents to the emergency room with complaints of upper abdominal pain. This began yesterday afternoon. She had eaten some strawberries and blueberries nothing else that seem to trigger it. She has a history of pancreatitis, her pancreatitis in the past has not been related to alcohol her triglycerides. She has previously had bariatric surgery. She has been very nauseated she has not had any vomiting. No hematochezia melena hematemesis coffee-ground emesis no dysuria urgency or frequency or hematuria. Subjective fever overnight. MD elicited complaint: abdominal pain Pertinent past history: other (Pancreatitis) Onset (ago): hour(s) Pain Consistency: constant Location: Epigastric Severity: moderate Quality: sharp Radiation: back Exacerbating factors: eating Relieving factors: nothing Associated Symptoms: Reports anorexia, GI cramping, dyspepsia, nausea and poor appetite; Denies belching, bloating, change in bowel habits, change in stool character, chills, coffee ground emesis, constipation, diarrhea, dysuria, excessive flatus, fever(s), heartburn, hematochezia, hematuria, hematemesis, fecal incontinence, loose stools, melena, syncope, vomiting and other Review of Systems Const: Denies: fever(s) or chills Card: Denies: chest pain or syncope Resp: Denies: dyspnea GI: Reports: nausea and GI cramping; Denies: abdominal pain, vomiting, hematemesis, coffee ground emesis, heartburn, diarrhea, constipation, bloating, belching, excessive flatus, fecal incontinence, change in bowel habits, change in stool character, hematochezia, melena or other : Denies: dysuria, urinary frequency, urinary urgency or hematuria Musc: Denies: neck pain or back pain Skin/Breast: Denies: rash PFSH ED PFSH: Medical History Anxiety Chronic lumbosacral pain Depression RLS (restless legs syndrome) Surgical History History of gastric bypass Hx of section Hx of cholecystectomy Hx of tubal ligation Family History Other Psychiatric illness Thyroid disease Social History Smoking and tobacco/nicotine status: never used tobacco/nicotine Alcohol intake: never Substance/Drug Use: never Adopted: No Caregiver/support person: No Lives independently: No Household members: children Marital status: SINGLE Sexually active: Yes Do you think of yourself as: Straight/Heterosexual Current gender identity: Female Physical Exam Const: COMMON NORMALS: no acute distress GENERAL APPEARANCE: cooperative and comfortable ORIENTATION/CONSCIOUSNESS: Yes awake, Yes oriented to person, Yes oriented to place and Yes oriented to time HENMT: COMMON NORMALS: normocephalic, atraumatic and hearing grossly normal bilaterally HEAD & SCALP: normocephalic and atraumatic Resp: COMMON NORMALS: normal respiratory effort, No retractions, No use of accessory muscles and clear to auscultation bilaterally AUSCULTATION: clear to auscultation bilaterally Cardio: COMMON NORMALS: regular rate, regular rhythm and No murmurs present (Cardio) RATE: regular rate RHYTHM: regular rhythm GI: COMMON NORMALS: Soft to palpation and No hepatosplenomegaly present AUSCULTATION: Yes normoactive bowel sounds PALPATION: Yes Soft to palpation, No Tenderness to palpation present (GI), No Guarding due to palpation present (GI) and Yes No hepatosplenomegaly present Extremity: COMMON NORMALS: normal to inspection, capillary refill normal, no clubbing, cyanosis or edema, no calf tenderness and no pedal edema Neuro: SENSORIUM/ORIENTATION: Yes oriented to person, Yes oriented to place and Yes oriented to time Skin: COMMON NORMALS: no rashes or lesions noted GENERAL SKIN EXAM: no rashes or lesions noted Course Vital Signs: Vital signs: Vital Signs Temperature 98.2 F 03/17/23 08:03 Pulse Rate 92 03/17/23 10:50 Respiratory Rate 16 03/17/23 10:50 Blood Pressure 104/52 03/17/23 10:50 Pulse Oximetry 97 03/17/23 10:50 Oxygen Delivery Me thod Room Air 03/17/23 09:07 MDM - Abdominal Pain Medical Decision Making Labs and physical exam unremarkable. Patient is open improved discharge her home increase her pantoprazole to 40 mg twice daily add Carafate 1 g every 6 hours as needed discussed dietary adjustments recheck if not improving. Follow- up with primary care doctor in Differential Diagnosis Likely abdominal pain, acute appendicitis, calculus of kidney, pancreatitis and small bowel obstruction Medical Records I reviewed the patient's medical records. Lab Data I reviewed the patient's lab results. 03/17/23 08:17 03/17/23 08:17 Labs/Radiology: Laboratory Results WBC 5.43 10^3/uL (3.29-11.43) 03/17/23 08:17 RBC 4.69 10^6/uL (3.85-5.65) 03/17/23 08:17 Hgb 11.40 g/dL (11.27-16.99) 03/17/23 08:17 Hct 37.0 % (36-47) 03/17/23 08:17 MCV 78.9 fl (85-98) L 03/17/23 08:17 MCH 24.3 pg (27-33) L 03/17/23 08:17 MCHC 30.8 g/dL (30-55) 03/17/23 08:17 RDW 14.2 % (12.1-15.1) 03/17/23 08:17 Plt Count 265 10^3/cmm (157-399) 03/17/23 08:17 MPV 10.7 fL (7.4-10.4) H 03/17/23 08:17 Neut % (Auto) 72.9 % 03/17/23 08:17 Lymph % (Auto) 16.9 % 03/17/23 08:17 [place] % (Auto) 8.7 % 03/17/23 08:17 Eos % (Auto) 0.7 % 03/17/23 08:17 Baso % (Auto) 0.6 % 03/17/23 08:17 Neut # (Auto) 3.96 10^3/uL (1.8-7.7) 03/17/23 08:17 Lymph # (Auto) 0.9 10^3/uL (0.8-4.8) 03/17/23 08:17 [place] # (Auto) 0.5 10^3/uL (0.2-0.9) 03/17/23 08:17 Eos # (Auto) 0.0 10^3/uL (0.0-0.8) 03/17/23 08:17 Baso # (Auto) 0.0 10^3/uL (0.0-0.1) 03/17/23 08:17 Nucleated RBC % (auto) 0 % 03/17/23 08:17 Nucleated RBCs # 0.0 /100WBC 03/17/23 08:17 Sodium 137 mmol/L (136-145) 03/17/23 08:17 Potassium 4.1 mmol/L (3.5-5.1) 03/17/23 08:17 Chloride 103 mmol/L (98-107) 03/17/23 08:17 Carbon Dioxide 25 mmol/L (22-29) 03/17/23 08:17 Anion Gap 13.1 (5-19) 03/17/23 08:17 BUN 13 mg/dL (6-20) 03/17/23 08:17 Creatinine 0.7 mg/dL (0.5-0.9) 03/17/23 08:17 GFR Calculation 95.2 mL/min (90-130) 03/17/23 08:17 Glucose 102 mg/dL (65-115) 03/17/23 08:17 Calculated Osmolality 284 mOsm/kg (285-295) L 03/17/23 08:17 Calcium 8.8 mg/dL (8.5-10.5) 03/17/23 08:17 Total Bilirubin 0.5 mg/dL (0.15-1.2) 03/17/23 08:17 AST 31 U/L (0-32) 03/17/23 08:17 ALT 30 U/L (0-33) 03/17/23 08:17 Alkaline Phosphatase 110 U/L (35-105) H 03/17/23 08:17 Total Protein 7.0 g/dL (6.6-8.7) 03/17/23 08:17 Albumin 4.1 g/dL (3.5-5.2) 03/17/23 08:17 Globulin 2.9 g/dL (1.3-4.6) 03/17/23 08:17 Lipase 27 U/L (13-60) 03/17/23 08:17 Urine Color Yellow (Yellow) 03/17/23 09:10 Urine Appearance Hazy (CLEAR) A 03/17/23 09:10 Urine pH 5 (5-7) 03/17/23 09:10 Ur Specific [place] 1.020 (1.005-1.030) 03/17/23 09:10 Urine Protein Neg (Negative) 03/17/23 09:10 Urine Glucose (UA) Norm (Normal) 03/17/23 09:10 Urine Ketones Negative (Negative) 03/17/23 09:10 Urine Blood 3+ (Negative) H 03/17/23 09:10 Urine Nitrate Negative (Negative) 03/17/23 09:10 Urine Bilirubin 1+ (Negative) H 03/17/23 09:10 Urine Urobilinogen 1 mg/dL (Negative) H 03/17/23 09:10 Ur Leukocyte Esterase Negative (Negative) 03/17/23 09:10 Urine RBC 0-4 /hpf (0-2) H 03/17/23 09:10 Urine WBC 0-4 /hpf (0-5) H 03/17/23 09:10 Ur Squamous Epith Cells 15-25 /hpf (0-5) H 03/17/23 09:10 Amorphous Sediment Not Reportable 03/17/23 09:10 Urine Bacteria 2+ /hpf (NONE) H 03/17/23 09:10 No radiology studies performed this visit Discharge Plan Discharge Patient Disposition: Home Clinical Impression: GERD (gastroesophageal reflux disease) Condition: Stable Prescriptions: New pantoprazole 40 mg tablet,delayed release (DR/EC) 40 mg PO BID 14 Days Qty: 28 0RF Carafate 1 gram tablet 1 g PO Q6H PRN (Reason: Dyspepsia, stomach upset) 28 Days Qty: 112 0RF Rx Instructions: Do not take within 45 minutes to an hour of pantoprazole Discontinued pantoprazole 20 mg tablet,delayed release (DR/EC) 20 mg PO QAM No Action (DME) CPAP See Rx Instructions .Route .MEDSUPPLY Qty: 1 0RF Rx Instructions: Auto Titrate CPACP 6-16cm Sleep study done at [facility] buspirone 10 mg tablet 20 mg PO BID 90 Days Qty: 360 0RF acetaminophen [Tylenol Ex Str Rapid Release] 500 mg Tablet 1,000 mg PO Q4H PRN (Reason: Pain) venlafaxine 37.5 mg capsule,extended release 24hr 37.5 mg PO QAM Discharge Orders: Discharge ED (Routine); Ordered 03/17/23 Ordered By: Lon Moy Referrals: Deepak Aguirre FNP [Primary Care Provider] - Discharge Diet: As Directed Discharge Activity: Increase activity as tolerated Patient Instructions: Diet for Stomach Ulcers and Gastritis (ED), Opioid Safety , Pain Management Coding Level of Care Code ED Director Of Distance Learning for Obed Overton
[2023-03-17 08:27] LABS: Basophils % 0.6 %; Eosinophils % 0.7 %; Lymphocytes # 0.9 10^3/uL (0.8-4.8); Lymphocytes % 16.9 %; Mean Corpuscular HGB Conc 30.8 g/dL (30-55); Mean Corpuscular Hemoglobin 24.3 pg (27-33); Mean Corpuscular Volume 78.9 fl (85-98); Mean Platelet Volume 10.7 fL (7.4-10.4); Monocytes # 0.5 10^3/uL (0.2-0.9); Monocytes % 8.7 %; Neutrophils # 3.96 10^3/uL (1.8-7.7); Neutrophils % 72.9 %; Nucleated Red Blood Cells % 0 %; Platelet Count 265 10^3/cmm (157-399); Red Blood Count 4.69 10^6/uL (3.85-5.65); Red Cell Distribution Width 14.2 % (12.1-15.1); White Blood Count 5.43 10^3/uL (3.29-11.43)
[2023-03-17] MEDS: ondansetron 2 mg/ML SDV 2 mL 4 MG IVP (08:29)
[2023-03-17] MEDS: sodium chloride 0.9% 1,000 ML 999 ML IV (08:30)
[2023-03-17 08:39] LABS: Alanine Aminotransferase 30 U/L (0-33); Albumin Level 4.1 g/dL (3.5-5.2); Alkaline Phosphatase 110 U/L (35-105); Anion Gap 13.1 (5-19); Aspartate Amino Transferase 31 U/L (0-32); Blood Urea Nitrogen 13 mg/dL (6-20); Calcium 8.8 mg/dL (8.5-10.5); Carbon Dioxide 25 mmol/L (22-29); Chloride 103 mmol/L (98-107); Globulin 2.9 g/dL (1.3-4.6); Glomerular Filtration Rate 95.2 mL/min (90-130); Glucose 102 mg/dL (65-115); Lipase 27 U/L (13-60); Osmolality Calculated 284 mOsm/kg (285-295); Potassium 4.1 mmol/L (3.5-5.1); Sodium 137 mmol/L (136-145); Total Bilirubin 0.5 mg/dL (0.15-1.2)
[2023-03-17] MEDS: lidocaine 2% viscous 15 ML, aluminum-mag hydrox-simethicon 30 ML, sucralfate oral liq 1 GM PO (09:02)
[2023-03-17 09:07] VITALS: BP 108/75; PULSE 89; RESP 16; O2SAT 100
[2023-03-17 09:44] LABS: Add Urine Culture? No; Add Urine Microscopic? YES; Bacteria Urine 2+ /hpf; Bilirubin Urine 1+ (Negative); Blood Urine 3+ (Negative); Glucose Urine UA Norm (Normal); Ketones Urine Negative (Negative); Leukocyte Esterase Urine Negative (Negative); Nitrate Urine Negative (Negative); Protein Urine Neg (Negative); RBC Urine 0-4 /hpf (0-2); Squamous Epithelial Cell Urine 15-25 /hpf (0-5); Urine Appearance Hazy (CLEAR); Urine Color Yellow (Yellow); Urobilinogen Urine 1 mg/dL (Negative); WBC Urine 0-4 /hpf (0-5); pH Urine 5 (5-7)
[2023-03-17 10:00] VITALS: BP 111/70; PULSE 76; RESP 16; O2SAT 97
[2023-03-17 10:50] VITALS: BP 104/52; PULSE 92; RESP 16; O2SAT 97
== END 2023-03-17 10:51 | disposition home or self-care (01) ==
PROVIDERS: Emergency Provider Family Medicine; PCP Registered Nurse
DX: K21.9 Gastro-esophageal reflux disease without esophagitis (principal)
CPT/HCPCS: 80053; 81001; 83690; 85025; 96361; 96374; 99284; J2405; J7030

== ENCOUNTER 2023-12-15 13:12 | Emergency (ER) | payer SELFPAY ==
[2023-12-15 13:13] VITALS: BP 127/85; PULSE 98; RESP 18; TEMP 36.5; O2SAT 97; BMI 33.0
--- NOTE | 2023-12-15 13:49 | CTR_ITS ---
PROCEDURE INFORMATION: Exam: CT Abdomen And Pelvis With Contrast Exam date and time: 12/15/2023 2:14 PM Age: 33 years old Clinical indication: Abdominal pain; Other: Llq; Prior surgery; Surgery date: 6+ months; Surgery type: , tubal, gallbladder, gastric bypass; Additional info: Eval diverticulitis, llq pain TECHNIQUE: Imaging protocol: Computed tomography of the abdomen and pelvis with contrast. Radiation optimization: All CT scans at this facility use at least one of these dose optimization techniques: automated exposure control; mA and/or kV adjustment per patient size (includes targeted exams where dose is matched to clinical indication); or iterative reconstruction. Contrast material: [id number]; Contrast volume: 100 ml; Contrast route: INTRAVENOUS (IV); COMPARISON: CT abdomen pelvis w con* [id number] 03/31/2021 1:01 PM RADIATION DOSE METRICS: Total DLP (mGy-cm): 892.33 FINDINGS: Liver: Unchanged hypodensity within the liver adjacent to the falciform ligament. Gallbladder and biliary ducts: Previous cholecystectomy. Pancreas: Normal. No ductal dilation. Spleen: Normal. No splenomegaly. Adrenal glands: Normal. No mass. Kidneys and ureters: Normal. No hydronephrosis. Stomach and bowel: Unremarkable. No obstruction. No mucosal thickening. Appendix: No evidence of appendicitis. Intraperitoneal space: Unremarkable. No free air. No significant fluid collection. Vasculature: Unremarkable. No abdominal aortic aneurysm. Lymph nodes: Unremarkable. No enlarged lymph nodes. Urinary bladder: Unremarkable as visualized. Reproductive: Unremarkable as visualized. Bones/joints: Unremarkable. No acute fracture. Soft tissues: Unremarkable. Other findings: Previous bariatric surgery. CT/CT abdomen pelvis w con* [id number] IMPRESSION: No acute findings.
--- NOTE | 2023-12-15 13:50 | ED_ITS ---
HPI - Abdominal Pain 2 General: Chief Complaint: Abdominal Pain Stated Complaint: left side pain, abd pain Time Seen by Provider: 12/15/23 13:29 History of Present Illness: HPI: Patient with history of gastric bypass remotely and PCOS presenting with left lower quadrant abdominal pain. Describes the pain as aching to sharp with occasional radiation into her vagina. No active sexual history, last intercourse 4 years ago without STD history. Also notes that is having continued vaginal spotting after a prolonged menstrual cycle of 8 days which is atypical for her. Pain came on progressively not suddenly during any activity. No nausea, vomiting, diarrhea. ROS: 10 systems reviewed and otherwise unrema rkable except for those noted in HPI. Physical Exam: Triage vital signs reviewed General: No acute distress, cooperative and comfortable HEENT: Normocephalic, atraumatic, external ears normal, moist mucous membranes, PERRLA. Chest: Normal inspection, equal rise and fall, no edema Respiratory: Normal respiratory effort, no atypical respiratory sounds GI: Left lower quadrant tenderness palpation, mild suprapubic tenderness to palpation, no rebound, no upper abdominal tenderness, no right lower quadrant tenderness over McBurney's point. Extremities: Moving all 4 extremities easily, no deformities Neuro: No meningeal signs, motor function in the room without abnormalities, sensation intact Skin: No rashes, bruising, warm, dry Procedures: N/A MDM: Considered diagnoses include but are not limited to intra-abdominal surgical or infectious emergency including diverticulitis, ovarian torsion, ruptured ovarian cyst, renal colic, urinary tract infection. Vital signs nonactionable. Based on history, exam, and any results no emergent condition identified. CT without emergent findings. Prescribed trial of Bentyl given improvement in pain symptoms in the emergency department. Ultrasound obtained demonstrating fibroids and cyst. Advise return for any symptoms that continue over 24 hours for repeat abdominal examination and check. Patient educated about reasons to return to the emergency department including signs of ongoing or changing condition. Advised to make an appointment with primary care or to establish care with a primary care provider to review all results from this encounter. This note was written with assistance of dictation software. Contact author for any clarification of typos. Gordon Ayala MD Related Data: Date of Last Menstrual Period: 12/10/23 [facility] ED 2 PFSH: Medical History Anxiety Chronic lumbosacral pain Depression RLS (restless legs syndrome) Surgical History History of gastric bypass Hx of section Hx of cholecystectomy Hx of tubal ligation Family History Other Psychiatric illness Thyroid disease Social History Smoking and tobacco/nicotine status: never used tobacco/nicotine Alcohol intake: never Substance/Drug Use: never Adopted: No Caregiver/support person: No Lives independently: No Household members: children Marital status: SINGLE Sexually active: Yes Do you think of yourself as: Straight/Heterosexual Current gender identity: Female Female Reproductive History: Date of last menstrual period: 12/10/23 Course 2 Vital Signs: Vital signs: Vital Signs Temperature 97.7 F 12/15/23 13:13 Pulse Rate 77 12/15/23 16:56 Respiratory Rate 14 12/15/23 16:56 Blood Pressure 125/85 12/15/23 16:56 Pulse Oximetry 99 12/15/23 16:56 Oxygen Delivery Me thod Room Air 12/15/23 16:56 MDM - Abdominal Pain Medical Decision Making see mdm Lab Data 12/15/23 13:54 12/15/23 13:54 Labs/Radiology: Radiology Impressions Abdomen/Pelvis CT 12/15/23 13:49 IMPRESSION: No acute findings. Pelvic/Transvag US 12/15/23 15:22 IMPRESSION: 1. No evidence for ovarian torsion. 2. Left ovarian cyst. 3. Two uterine fibroids. Laboratory Results WBC 6.31 10^3/uL (3.29-11.43) 12/15/23 13:54 RBC 4.72 10^6/uL (3.85-5.65) 12/15/23 13:54 Hgb 12.00 g/dL (11.27-16.99) 12/15/23 13:54 Hct 38.9 % (36-47) 12/15/23 13:54 MCV 82.4 fl (85-98) L 12/15/23 13:54 MCH 25.4 pg (27-33) L 12/15/23 13:54 MCHC 30.8 g/dL (30-55) 12/15/23 13:54 RDW 16.8 % (12.1-15.1) H 12/15/23 13:54 Plt Count 273 10^3/cmm (157-399) 12/15/23 13:54 MPV 10.5 fL (7.4-10.4) H 12/15/23 13:54 Neut % (Auto) 63.2 % 12/15/23 13:54 Lymph % (Auto) 27.3 % 12/15/23 13:54 Hooker % (Auto) 8.7 % 12/15/23 13:54 Eos % (Auto) 0.0 % 12/15/23 13:54 Baso % (Auto) 0.6 % 12/15/23 13:54 Neut # (Auto) 3.99 10^3/uL (1.8-7.7) 12/15/23 13:54 Lymph # (Auto) 1.7 10^3/uL (0.8-4.8) 12/15/23 13:54 Hooker # (Auto) 0.6 10^3/uL (0.2-0.9) 12/15/23 13:54 Eos # (Auto) 0.0 10^3/uL (0.0-0.8) 12/15/23 13:54 Baso # (Auto) 0.0 10^3/uL (0.0-0.1) 12/15/23 13:54 Nucleated RBC % (auto) 0 % 12/15/23 13:54 Nucleated RBCs # 0.0 /100WBC 12/15/23 13:54 Sodium 140 mmol/L (136-145) 12/15/23 13:54 Potassium 4.2 mmol/L (3.5-5.1) 12/15/23 13:54 Chloride 106 mmol/L (98-107) 12/15/23 13:54 Carbon Dioxide 26 mmol/L (22-29) 12/15/23 13:54 Anion Gap 12.2 (5-19) 12/15/23 13:54 BUN 10 mg/dL (6-20) 12/15/23 13:54 Creatinine 0.7 mg/dL (0.5-0.9) 12/15/23 13:54 GFR Calculation 95.2 mL/min (90-130) 12/15/23 13:54 Glucose 106 mg/dL (65-115) 12/15/23 13:54 Calculated Osmolality 289 mOsm/kg (285-295) 12/15/23 13:54 Calcium 9.0 mg/dL (8.5-10.5) 12/15/23 13:54 Total Bilirubin 0.2 mg/dL (0.15-1.2) 12/15/23 13:54 AST 17 U/L (0-32) 12/15/23 13:54 ALT 12 U/L (0-33) 12/15/23 13:54 Alkaline Phosphatase 104 U/L (35-105) 12/15/23 13:54 Total Protein 7.4 g/dL (6.6-8.7) 12/15/23 13:54 Albumin 4.3 g/dL (3.5-5.2) 12/15/23 13:54 Globulin 3.1 g/dL (1.3-4.6) 12/15/23 13:54 Lipase 33 U/L (13-60) 12/15/23 13:54 HCG, Qual Negative (Negative) 12/15/23 14:20 Urine Color Yellow (Yellow) 12/15/23 14:20 Urine Appearance Clear (CLEAR) 12/15/23 14:20 Urine pH 8 (5-7) H 12/15/23 14:20 Ur Specific Metter 1.015 (1.005-1.030) 12/15/23 14:20 Urine Protein Neg (Negative) 12/15/23 14:20 Urine Glucose (UA) Norm (Normal) 12/15/23 14:20 Urine Ketones 1+ (Negative) H 12/15/23 14:20 Urine Blood Neg (Negative) 12/15/23 14:20 Urine Nitrate Negative (Negative) 12/15/23 14:20 Urine Bilirubin Neg (Negative) 12/15/23 14:20 Urine Urobilinogen Neg mg/dL (Negative) 12/15/23 14:20 Ur Leukocyte Esterase Trace (Negative) H 12/15/23 14:20 Urine RBC Rare /hpf (0-2) 12/15/23 14:20 Urine WBC 0-4 /hpf (0-5) H 12/15/23 14:20 Ur Squamous Epith Cells 0-4 /hpf (0-5) H 12/15/23 14:20 Amorphous Sediment 1+ /hpf 12/15/23 14:20 Urine Bacteria 1+ /hpf (NONE) H 12/15/23 14:20 Urine Mucus 1+ /hpf 12/15/23 14:20 No radiology studies performed this visit Discharge Plan Discharge Clinical Impression: Abdominal pain Qualifiers: Abdominal location: left lower quadrant Qualified Code(s): R10.32 - Left lower quadrant pain Ovarian cyst Qualifiers: Laterality: left Qualified Code(s): N83.202 - Unspecified ovarian cyst, left side Fibroid, uterine Qualifiers: Uterine leiomyoma location: intramural Qualified Code(s): D25.1 - Intramural leiomyoma of uterus Condition: Stable Prescriptions: No Action (DME) CPAP See Rx Instructions .Route .MEDSUPPLY Qty: 1 0RF Rx Instructions: Auto Titrate CPACP 6-16cm Sleep study done at [facility] buspirone 10 mg tablet 20 mg PO BID 90 Days Qty: 360 0RF venlafaxine 37.5 mg capsule,extended release 24hr 37.5 mg .ROUTE .COMPLEX Qty: 30 0RF Rx Instructions: 37.5 mg; pantoprazole 20 mg tablet,delayed release (DR/EC) See Rx Instructions .ROUTE .COMPLEX Qty: 90 0RF Dose Instruction: TAKE ONE TABLET BY MOUTH DAILY ON AN EMPTY STOMACH Rx Instructions: TAKE ONE TABLET BY MOUTH DAILY ON AN EMPTY STOMACH acetaminophen [Tylenol Ex Str Rapid Release] 500 mg Tablet 1,000 mg PO Q4H PRN (Reason: Pain) Discharge Orders: Discharge ED (Routine); Ordered 12/15/23 Ordered By: Gordon Ayala Discharge Diet: Advance as tolerated Discharge Activity: Resume usual activity Patient Instructions: Abdominal Pain (ED) Activity Restrictions/Additional Instructions: It has been a pleasure caring for you in the emergency department. Please ensure that you follow-up with your primary care physician for review of all data obtained during this encounter including any incidental findings and laboratory values. Keep in mind that if your condition changes in any way I recommend that you return to the emergency department for repeat evaluation. Take 1 scoop of MiraLAX and 1 full glass of water at breakfast lunch and dinner for constipation. Coding Level of Care Code ED [employer] for Obed Overton
[2023-12-15 14:03] LABS: Basophils % 0.6 %; Hematocrit 38.9 % (36-47); Lymphocytes # 1.7 10^3/uL (0.8-4.8); Lymphocytes % 27.3 %; Mean Corpuscular HGB Conc 30.8 g/dL (30-55); Mean Corpuscular Hemoglobin 25.4 pg (27-33); Mean Corpuscular Volume 82.4 fl (85-98); Mean Platelet Volume 10.5 fL (7.4-10.4); Monocytes # 0.6 10^3/uL (0.2-0.9); Monocytes % 8.7 %; Neutrophils # 3.99 10^3/uL (1.8-7.7); Neutrophils % 63.2 %; Nucleated Red Blood Cells % 0 %; Platelet Count 273 10^3/cmm (157-399); Red Blood Count 4.72 10^6/uL (3.85-5.65); Red Cell Distribution Width 16.8 % (12.1-15.1); White Blood Count 6.31 10^3/uL (3.29-11.43)
[2023-12-15] MEDS: dicyclomine 20 mg Tablet PO (14:03)
[2023-12-15 14:11] VITALS: BP 144/94
[2023-12-15] MEDS: iohexol 350 mg/mL 500 mL Btl (per mL) IV (14:15)
[2023-12-15 14:21] LABS: Alanine Aminotransferase 12 U/L (0-33); Albumin Level 4.3 g/dL (3.5-5.2); Alkaline Phosphatase 104 U/L (35-105); Anion Gap 12.2 (5-19); Aspartate Amino Transferase 17 U/L (0-32); Blood Urea Nitrogen 10 mg/dL (6-20); Carbon Dioxide 26 mmol/L (22-29); Chloride 106 mmol/L (98-107); Creatinine Clr Calc Pharmacy 146.6788; Globulin 3.1 g/dL (1.3-4.6); Glomerular Filtration Rate 95.2 mL/min (90-130); Glucose 106 mg/dL (65-115); Lipase 33 U/L (13-60); Osmolality Calculated 289 mOsm/kg (285-295); Potassium 4.2 mmol/L (3.5-5.1); Sodium 140 mmol/L (136-145); Total Bilirubin 0.2 mg/dL (0.15-1.2); Total Protein 7.4 g/dL (6.6-8.7)
[2023-12-15 14:30] VITALS: BP 144/94
[2023-12-15 14:32] LABS: Glucose Urine UA Norm (Normal); Protein Urine Neg (Negative); Specific Gravity, Urine 1.015 (1.005-1.030); Urine Appearance Clear (CLEAR); Urine Color Yellow (Yellow); pH Urine 8 (5-7)
[2023-12-15 14:33] LABS: Add Urine Microscopic? YES; Bilirubin Urine Neg (Negative); Blood Urine Neg (Negative); Ketones Urine 1+ (Negative); Leukocyte Esterase Urine Trace (Negative); Nitrate Urine Negative (Negative); Urobilinogen Urine Neg (Negative)
[2023-12-15 14:34] LABS: Amorphous Sediment Urine 1+ /hpf; Bacteria Urine 1+ /hpf; RBC Urine RARE /hpf (0-2); Squamous Epithelial Cell Urine 0-4 /hpf (0-5); WBC Urine 0-4 /hpf (0-5)
[2023-12-15 14:35] LABS: Add Urine Culture? No; Mucus Urine 1+ /hpf
[2023-12-15 14:37] LABS: HCG Qualitative Urine. Negative (Negative)
--- NOTE | 2023-12-15 15:22 | USR_ITS ---
PROCEDURE INFORMATION: Exam: US Pelvis, Complete, Non-Obstetric Exam date and time: 12/15/2023 4:09 PM Age: 33 years old Clinical indication: Pelvic pain; Additional info: Eval R ovarian torsion TECHNIQUE: Imaging protocol: Transabdominal pelvic nonobstetric ultrasound. Complete exam. Real time ultrasound with image documentation. COMPARISON: CT abdomen pelvis w con* [id number] 12/15/2023 2:14 PM FINDINGS: Uterus: 2 uterine fibroids are noted. Smaller fibroid is posterior and fundal measuring 2.1 x 2.0 x 1.9 cm. Largest fibroid measures 2.5 x 1.8 x 2.6 cm.. Endometrial stripe is normal. Uterus measures 9.1 x 5.3 x 5.5 cm Right ovary/adnexa: Ovary is normal. No mass. Normal blood flow. Right ovary measures 3.3 x 2.3 x 3.5 cm. Left ovary/adnexa: Left ovarian cyst measuring 2.1 x 2.3 x 1.5 cm. No mass. Normal blood flow. Left ovary measures 3.1 x 2.0 x 3.4 cm. Intraperitoneal space: No intraperitoneal fluid. Urinary bladder: Normal. US/US pelv w/transvag [id number] IMPRESSION: 1. No evidence for ovarian torsion. 2. Left ovarian cyst. 3. Two uterine fibroids.
[2023-12-15 16:56] VITALS: BP 125/85; PULSE 77; RESP 14; O2SAT 99
[2023-12-15 18:09] VITALS: BP 133/76; PULSE 80; RESP 16; O2SAT 97
== END 2023-12-15 18:11 | disposition home or self-care (01) ==
PROVIDERS: Emergency Provider General Practice; PCP Nurse Practitioner Family
DX: R10.32 Left lower quadrant pain (principal); N83.202 Unspecified ovarian cyst, left side; D25.1 Intramural leiomyoma of uterus
CPT/HCPCS: 74177; 76830; 76856; 80053; 81001; 81025; 83690; 85025; 99285; Q9967

== ENCOUNTER → 2024-06-04 15:33 | Outpatient (BNVA) | payer MEDICAID, SELFPAY | PROVIDERS: PCP Nurse Practitioner Family; Visit Provider Nurse Practitioner Women's Health | DX: D25.9 Leiomyoma of uterus, unspecified (principal); N83.201 Unspecified ovarian cyst, right side | CPT/HCPCS: 76830 ==

== ENCOUNTER → 2024-06-25 09:19 | Outpatient (BNVA) | payer MEDICAID, SELFPAY | PROVIDERS: PCP Nurse Practitioner Family; Visit Provider Nurse Practitioner Women's Health | DX: N92.6 Irregular menstruation, unspecified (principal) | CPT/HCPCS: 84702 ==

== ENCOUNTER → 2024-08-07 13:01 | Outpatient (BNVA) | payer MEDICAID, SELFPAY | PROVIDERS: PCP Nurse Practitioner Family; Visit Provider Nurse Practitioner Women's Health | DX: D25.9 Leiomyoma of uterus, unspecified (principal) | CPT/HCPCS: 76830 ==